=== PATIENT | male | born 1945 | race Caucasian/White ===

== ENCOUNTER 2017-04-07 23:00 | Inpatient (IN) | payer MEDICARE ==
[2017-04-07] MEDS ORDERED: ASPIRIN 81 MG PO STA (23:41)
--- NOTE | 2017-04-07 23:46 | ED ---
Chest Pain HPI - General Chief Complaint: Chest Pain Stated Complaint: Chest pain Time Seen by Provider: 04/07/17 23:14 Source: patient Mode of arrival: ambulatory Limitations: no limitations - History of Present Illness Initial Comments: This patient is a 71-year-old man who presents to be evaluated for substernal chest pain. The patient states that he first noted it around 2 in the afternoon while he was at rest. The pain was constant, mild to moderate, aching. He states that also felt like it was to both shoulders. Patient states that it was not bothering him very much so he was initially not concerned. When it had not resolved by 7 PM tonight, he took an 81 mg aspirin and states that the pain resolved following this. He then went to bed but noted that while he was in bed around 10:30 the pain recurred. He again took an 81 mg aspirin but when the pain did not resolve he decided come here. He states that the pain has resolved while he was on the way here. He patient has not noted any other worsening or relieving factors. He states there were no associated symptoms and denied other symptoms, see the review of systems please MD Complaint: chest pain -: hour(s) Onset: during rest Pain Location: substernal Severity: moderate Quality: aching Consistency: intermittent, now resolved Improves With: other (Aspirin) Worsens With: nothing Treatments Prior to Arrival: aspirin - Related Data Home Medications Medication Instructions Recorded Confirmed Aspirin 162 mg PO ONCE PRN 04/07/17 04/07/17 Hydrochlorothiazide [Hydrodiuril] 25 mg PO BID 04/07/17 04/07/17 Allergies Allergy/AdvReac Type Severity Reaction Status Date / Time No Known Allergies Allergy Verified 04/07/17 23:43 Review of Systems ROS Statement: Those systems with pertinent positive or pertinent negative responses have been documented in the HPI. ROS Other: All systems not noted in ROS Statement are negative. Constitutional: Denies: fever, chills, weakness Respiratory: Denies: cough, dyspnea Cardiovascular: Reports: as per HPI, chest pain. Denies: palpitations, orthopnea, edema, syncope Gastrointestinal: Denies: abdominal pain, nausea, vomiting Genitourinary: Denies: dysuria, hematuria Musculoskeletal: Denies: back pain Skin: Denies: rash Neurological: Denies: headache, weakness, numbness EKG Findings - EKG Results: EKG: interpreted by LIDA, sinus rhythm (Rate approximately 66 bpm), normal axis , normal QRS - Blocks, [place], Hypertrophy, ST Abn: Repolarization changes or abnormalities: nonspecific abnormality, ST segment, and/or T wave Past Medical History Past Medical History: Hypertension Additional Past Medical History / Comment(s): laceration to left second finger. History of Any Multi-Drug Resistant Organisms: None Reported Past Surgical History: No Surgical Hx Reported Past Psychological History: No Psychological Hx Reported Smoking Status: Never smoker Past Alcohol Use History: None Reported Past Drug Use History: None Reported General Exam Limitations: no limitations General appearance: alert, in no apparent distress Head exam: Present: atraumatic, normocephalic Eye exam: Present: normal appearance. Absent: scleral icterus, conjunctival injection ENT exam: Present: normal oropharynx Neck exam: Present: normal inspection, full ROM Respiratory exam: Present: normal lung sounds bilaterally. Absent: respiratory distress, wheezes, rales, rhonchi, stridor Cardiovascular Exam: Present: regular rate, normal rhythm, normal heart sounds. Absent: systolic murmur, diastolic murmur, rubs, gallop GI/Abdominal exam: Present: soft. Absent: distended, tenderness, guarding, rebound, mass Extremities exam: Present: normal inspection, normal capillary refill. Absent: pedal edema, calf tenderness Back exam: Present: normal inspection. Absent: CVA tenderness (R), CVA tenderness (L) Neurological exam: Present: alert Skin exam: Present: warm, dry, intact, normal color. Absent: rash Course Vital Signs 04/07/17 04/07/17 23:02 23:49 Temperature 97.3 F L Pulse Rate 81 69 Respiratory 20 18 Rate Blood Pressure 212/105 195/88 O2 Sat by Pulse 100 98 Oximetry Chest Pain [facility] Patient is 71-year-old man who has had episodes of chest pain and has a minimally elevated troponin. He is currently symptom-free in the emergency department. Patient will be admitted and have cardiology consultation. Patient is given nitroglycerin for his elevated blood pressure along with low dose of an oral beta helena. Again he remained symptom-free at time of admission Critical Care Time Critical Care Time: Yes (35 minutes) Disposition Clinical Impression: Acute coronary syndrome, Hypertension Disposition: ADMITTED IP TO THIS HOSP Condition: Fair Referrals: Thai Lopez DO [Primary Care Provider] - 1-2 days
[2017-04-07 23:51] LABS: Basophils # (A) 0.1 k/uL (0-0.2); Basophils % (A) 1 %; CH 35.9; CHCM 34.7; Eosinophils # (A) 0.2 k/uL (0-0.7); Eosinophils % (A) 3 %; HCT 47.3 % (39.0-53.0); HDW 2.38; HGB 15.6 gm/dL (13.0-17.5); Luc % (Auto) 4; Lymphocytes # (A) 2.3 k/uL (1.0-4.8); Lymphocytes % (A) 27 %; MCH 34.3 pg (25.0-35.0); MCHC 33.1 g/dL (31.0-37.0); MCV 103.7 fL (80.0-100.0); Macrocytosis Slight; Mean Platelet Volume 8.1; Monocytes # (A) 0.6 k/uL (0-1.0); Monocytes % (A) 7 %; Neutrophils % (A) 59 %; RBC 4.55 m/uL (4.30-5.90); RDW 13.5 % (11.5-15.5); WBC 8.5 k/uL (3.8-10.6); WBC (Perox) 8.33
--- NOTE | 2017-04-07 23:59 | XR ---
EXAMINATION TYPE: XR chest 1V portable DATE OF EXAM: 04/07/2017 COMPARISON: NONE HISTORY: Chest pain TECHNIQUE: Single frontal view of the chest is obtained. FINDINGS: There is no heart failure nor confluent pneumonic infiltrate. Costophrenic angles are allie r. Thoracic aorta is atheromatous. There are chest leads. IMPRESSION: No active cardiopulmonary disease.
[2017-04-08] LABS: ALT 36 U/L (21-72); AST 28 U/L (17-59); Alkaline Phosphatase 122 U/L (38-126); Anion Gap 12 mmol/L; Blood Urea Nitrogen 36 mg/dL (9-20); Calcium 9.8 mg/dL (8.4-10.2); Carbon Dioxide 26 mmol/L (22-30); Chloride 101 mmol/L (98-107); Glucose 108 mg/dL (74-99); Magnesium 1.8 mg/dL (1.6-2.3); Non-African American GFR(MDRD) >60 (>60 ml/min/1.73 sqM); Potassium 4.1 mmol/L (3.5-5.1); Sodium 139 mmol/L (137-145); Total Bilirubin 0.5 mg/dL (0.2-1.3); Total Protein 8.2 g/dL (6.3-8.2)
[2017-04-08 00:07] LABS: Partial Thromboplastin Time 25.8 sec (22.0-30.0); Prothrombin Time 10.5 sec (9.0-12.0)
[2017-04-08] MEDS ORDERED: HEPARIN SODIUM,PORCINE 5,000 UNIT/ML 1 ML VIAL IV ONE (01:00)
[2017-04-08] MEDS ORDERED: HEPARIN SODIUM,PORCINE 5,000 UNIT/ML 1 ML VIAL IV PRN (01:00)
[2017-04-08] MEDS ORDERED: HEPARIN SODIUM,PORCINE/D5W PMX 25,000 UNIT in DEXTROSE/WATER 1 500ML.BAG IV SCH (01:00)
[2017-04-08] MEDS ORDERED: NITROGLYCERIN SL TABS 0.4 MG TAB SUBLINGUAL PRN ×2 (01:01→10:02)
[2017-04-08] MEDS ORDERED: NITROGLYCERIN SL TABS 0.4 MG TAB SUBLINGUAL STA (01:04)
[2017-04-08] MEDS ORDERED: METOPROLOL TARTRATE 12.5 MG TAB PO STA (01:04)
[2017-04-08 02:22] VITALS: BMI 34.5
[2017-04-08 06:50] LABS: Basophils # (A) 0.1 k/uL (0-0.2); Basophils % (A) 1 %; CHCM 33.9; Eosinophils # (A) 0.2 k/uL (0-0.7); Eosinophils % (A) 3 %; HCT 43.4 % (39.0-53.0); HDW 2.47; HGB 14.5 gm/dL (13.0-17.5); Luc # (Auto) 0.25; Luc % (Auto) 3; Lymphocytes # (A) 2.6 k/uL (1.0-4.8); Lymphocytes % (A) 36 %; MCH 33.5 pg (25.0-35.0); MCHC 33.4 g/dL (31.0-37.0); MCV 100.5 fL (80.0-100.0); Mean Platelet Volume 7.4; Monocytes # (A) 0.6 k/uL (0-1.0); Monocytes % (A) 8 %; Neutrophils # (A) 3.6 k/uL (1.3-7.7); Neutrophils % (A) 49 %; RBC 4.32 m/uL (4.30-5.90); RDW 12.3 % (11.5-15.5); WBC 7.4 k/uL (3.8-10.6); WBC (Perox) 7.27
[2017-04-08 07:35] LABS: Creatine Kinase MB 10.2 ng/mL (0.0-2.4); Troponin I 0.939 ng/mL (0.000-0.034)
[2017-04-08] MEDS ORDERED: ASPIRIN 81 MG PO PRN (09:07)
[2017-04-08] MEDS ORDERED: ATORVASTATIN 80 MG TAB PO SCH (09:15)
--- NOTE | 2017-04-08 09:15 | P.CRDCN ---
History of Present Illness Consult date: 04/08/17 Requesting physician: River Tabares Consult reason: chest pain Chief complaint: Chest pain History of present illness: Is is a pleasant 71-year-old gentleman with history of hypertension, family history of coronary artery disease in that his father had coronary artery bypass grafting surgery at the age of 60. He is not a diabetic, no high cholesterol, he is a nonsmoker and does not drink alcohol. Patient states that he was at [facility] yesterday picking up his prescriptions, he checked his blood pressure there which was noted to be in the 180s systolic. On the drive home patient states that he developed pressure in the center of his chest which radiated up into the left shoulder and upper arm area. He states that the pain continued to come and go. He took a baby aspirin at home around 7:30 and states that within a half hour the symptoms seemed to subside. He then awoke again around 10:00 with the same pressure in the chest, again took a baby aspirin this time with no relief of symptoms. Therefore he came to the emergency room for further evaluation. Patient denies any associated nausea or shortness of breath, he states he felt warm but no aggressive diaphoresis. EKG on arrival here showed a normal sinus rhythm with lateral ST depression. Subsequent EKG showed a normal sinus rhythm with mild lateral ST depression noted. Chest x-ray did not reveal any active cardiopulmonary disease. White blood cell count 7.4, hemoglobin 14.5, platelet count 270, d-dimer 0.6. Sodium 139, potassium 4.9, BUN 36, creatinine 1.1, magnesium 1.8. creatinine 1.0. Initial troponin 0.12, subsequent troponin 0.93. Blood pressure on arrival here to 12/105, heart rate in the 80s, 100% on room air. Blood pressure this morning 144/80 with a heart rate in the 70s. At the time of my examination this morning, he denies any chest discomfort. He is currently on IV heparin, and hydrochlorothiazide. Past Medical History Past Medical History: Hypertension Additional Past Medical History / Comment(s): laceration to left second finger. History of Any Multi-Drug Resistant Organisms: None Reported Past Surgical History: No Surgical Hx Reported Past Anesthesia/Blood Transfusion Reactions: No Reported Reaction Past Psychological History: No Psychological Hx Reported Smoking Status: Never smoker Past Alcohol Use History: None Reported Past Drug Use History: None Reported - Past Family History Father Family Medical History: Coronary Artery Disease (CAD) Mother Family Medical History: Diabetes Mellitus Medications and Allergies Home Medications Medication Instructions Recorded Confirmed Type Aspirin 162 mg PO ONCE PRN 04/07/17 04/07/17 History Hydrochlorothiazide [Hydrodiuril] 25 mg PO BID 04/07/17 04/07/17 History Allergies Allergy/AdvReac Type Severity Reaction Status Date / Time No Known Allergies Allergy Verified 04/07/17 23:43 Physical Exam Vitals: Vital Signs Temp Pulse Pulse Resp BP BP Pulse Ox 04/08/17 04:00 18 04/08/17 02:00 97 F L 70 18 144/80 97 04/08/17 01:24 68 18 171/81 98 04/07/17 23:49 69 18 195/88 98 04/07/17 23:02 97.3 F L 81 20 212/105 100 Intake and Output 04/07/17 04/08/17 04/08/17 22:59 06:59 14:59 Intake Total 688.667 Balance 688.667 Intake: IV 500 0.9 NaCl 500 Intake, IV Titration 188.667 Amount Heparin Sodium,Porcine/ 188.667 D5w Pmx 25,000 unit In Dextrose/Water 1 500ml. bag @ 10.1 UNITS/KG/HR 20 .15 mls/hr IV .Q24H [facility] Rx#:[id number] Other: Weight 103 kg PHYSICAL EXAMINATION: HEENT: Head is atraumatic, normocephalic. Pupils equal, round. Neck is supple. There is no elevated jugular venous pressure. HEART EXAMINATION: Heart S1, S2 normal. No murmur or gallop heard. CHEST EXAMINATION: Lungs are clear to auscultation and precussion. No chest wall tenderness is noted on palpation or with deep breathing. ABDOMEN: Soft, nontender. Bowel sounds are heard. No organomegaly noted. EXTREMITIES: 2+ peripheral pulses with no evidence of peripheral edema and no calf tenderness noted. NEUROLOGIC patient is awake, alert and oriented -3. . Results 04/08/17 06:16 04/07/17 23:20 Cardiac Enzymes 04/07/17 04/07/17 04/08/17 Range/Units 23:20 23:20 06:16 AST 28 (17-59) U/L CK-MB (CK-2) 10.2 H* (0.0-2.4) ng/mL Troponin I 0.120 H* 0.939 H* (0.000-0.034) ng/mL Coagulation 04/07/17 04/08/17 Range/Units 23:20 06:16 PT 10.5 (9.0-12.0) sec APTT 25.8 42.7 H (22.0-30.0) sec CBC 04/07/17 04/08/17 Range/Units 23:20 06:16 WBC 8.5 7.4 (3.8-10.6) k/uL RBC 4.55 4.32 (4.30-5.90) m/uL Hgb 15.6 14.5 (13.0-17.5) gm/dL Hct 47.3 43.4 (39.0-53.0) % Plt Count 274 270 (150-450) k/uL Comprehensive Metabolic Panel 04/07/17 Range/Units 23:20 Sodium 139 (137-145) mmol/L Potassium 4.1 (3.5-5.1) mmol/L Chloride 101 (98-107) mmol/L Carbon Dioxide 26 (22-30) mmol/L BUN 36 H (9-20) mg/dL Creatinine 1.10 (0.66-1.25) mg/dL Glucose 108 H (74-99) mg/dL Calcium 9.8 (8.4-10.2) mg/dL AST 28 (17-59) U/L ALT 36 (21-72) U/L Alkaline Phosphatase 122 (38-126) U/L Total Protein 8.2 (6.3-8.2) g/dL Albumin 4.5 (3.5-5.0) g/dL Current Medications Generic Name Dose Route Start Last Admin Trade Name Freq PRN Reason Stop Dose Admin Aspirin 325 mg 04/09/17 09:00 Aspirin PO DAILY [facility] Heparin Sodium (Porcine) 0 unit 04/08/17 01:00 Heparin IV PER PROTOCOL PRN Low PTT Protocol Hydrochlorothiazide 25 mg 04/08/17 09:00 Hydrodiuril PO BID [facility] Heparin Sodium/Dextrose 25,000 500 mls @ 20.15 mls/hr 04/08/17 01:00 06:48 unit/ IV Solution IV 12.02 units/kg/hr .Q24H [facility] 23.98 mls/hr Protocol Titration 10.1 UNITS/KG/HR Nitroglycerin 0.4 mg 04/08/17 01:01 Nitrostat SUBLINGUAL Q5M PRN Chest Pain Intake and Output 04/07/17 04/08/17 04/08/17 22:59 06:59 14:59 Intake Total 688.667 Balance 688.667 Intake: IV 500 0.9 NaCl 500 Intake, IV Titration 188.667 Amount Heparin Sodium,Porcine/ 188.667 D5w Pmx 25,000 unit In Dextrose/Water 1 500ml. bag @ 10.1 UNITS/KG/HR 20 .15 mls/hr IV .Q24H [facility] Rx#:[id number] Other: Weight 103 kg 04/08/17 06:16 04/07/17 23:20 EKG Interpretations (text) EKG shows a normal sinus rhythm with mild lateral ST depression noted Assessment and Plan Plan: Assessment and plan #1 Intermittent symptoms of chest heaviness and pressure with radiation to the left arm, suggestive of acute coronary syndrome. Troponins 0.1, 0.9. #2 accelerated hypertension #3 history of hypertension #4 family history of coronary artery disease, his father underwent coronary artery bypass grafting surgery at the age of 60. #5 abnormal d-dimer Plan We will request a stat echocardiogram with Doppler study be performed. We will continue IV heparin. Initiate aspirin, statin, and beta helena. Patient has been advised that he may need to undergo cardiac catheterization for more definitive diagnosis. The risks and the benefits were explained to the patient in detail and he is willing to proceed. Further recommendations will be based on these findings and the patient's clinical course. DNP note has been reviewed, I agree with a documented findings and plan of care. Patient was seen and examined.
[2017-04-08] MEDS ORDERED: ALPRAZolam 0.25 MG TAB PO PRN (10:02)
[2017-04-08] MEDS ORDERED: ATORVASTATIN 80 MG TAB PO STA (10:02)
[2017-04-08] MEDS ORDERED: ALPRAZolam 0.5 MG TAB PO PRN (10:02)
[2017-04-08] MEDS ORDERED: SODIUM CHLORIDE 0.9% 1,000 ML in EMPTY BAG 1 BAG IV ONE (10:02)
[2017-04-08] MEDS ORDERED: ASPIRIN 325 MG TAB PO STA (10:07)
[2017-04-08] MEDS: METOPROLOL TARTRATE 25 MG TAB PO SCH ×2 (10:16→20:27)
[2017-04-08] MEDS: HYDROCHLOROTHIAZIDE 25 MG TAB PO SCH ×2 (10:17→20:27)
[2017-04-08] MEDS ORDERED: IV FLUID CONTINUATION 900 ML IV ONE (11:03)
[2017-04-08] MEDS ORDERED: MIDAZOLAM 2 MG/2 ML VIAL IVP ONE (11:03)
[2017-04-08] MEDS ORDERED: LIDOCAINE 2% INJ 20 MG/ML SQ ONE (11:05)
[2017-04-08] MEDS: VERAPAMIL SYRINGE (5 MG/10 ML) INTRAARTER ONE ×2 (11:08→11:44)
[2017-04-08] MEDS ORDERED: HEPARIN SODIUM 1,000 UN/ML (10ML VL) IV ONE ×2 (11:09→11:29)
[2017-04-08] MEDS: NITROGLYCERIN 1000MCG/10ML SYRINGE INTRACORON ONE ×2 (11:32→11:41)
[2017-04-08] MEDS ORDERED: CLOPIDOGREL 75 MG TAB PO ONE (11:37)
[2017-04-08] MEDS ORDERED: IODIXANOL 320 MG/ML 100 ML INTRAARTER ONE (11:43)
[2017-04-08] MEDS ORDERED: MAG HYDROX/AL HYDROX/SIMETH 30 ML CUP PO PRN (11:51)
[2017-04-08] MEDS ORDERED: RX INFO: IV CONTRAST WAS GIVEN 1 EACH MISC MISCELLANE PRN (11:51)
[2017-04-08] MEDS ORDERED: ATROPINE SULFATE 0.1 MG/ML 10ML SYRINGE IV PRN (11:51)
[2017-04-08] MEDS ORDERED: SODIUM CHLORIDE 0.9% 1,000 ML IV SCH (12:00)
--- NOTE | 2017-04-08 13:08 | CC ---
CARDIAC CATHETERIZATION REPORT DATE OF SERVICE: 04/08/2017 PERFORMING PHYSICIAN: Franklin Stern MD, heel cutter. PROCEDURE PERFORMED: 1. Selective right and left coronary angiogram. 2. Successful stenting of the first obtuse marginal branch of the left circumflex using a 2.5 x 12 mm Promus Premier drug-eluting stent with good angiographic results. INDICATION: This is a pleasant 71-year-old gentleman who presented to the hospital with chest discomfort and was seen and evaluated by Dr. VC Young where he was diagnosed with acute non ST elevation myocardial infarction. Heart catheterization from right radial approach was recommended. APPROACH: Right radial artery. COMPLICATION: None. LEVEL OF SEDATION: Moderate with sedation length of 40 minutes. PROCEDURE DESCRIPTION: After obtaining informed consent, the patient was brought to cardiac laborer shellfish processing. The right radial artery was cannulated using micropuncture technique, the micropuncture wire passed easily. Then I placed a 6-[place] sheath in the right radial artery. Subsequently I did selective right and left coronary angiogram using JR4 and JL3.5 catheters. After that, I did intervene on the left circumflex. Please see a separate paragraph for that. SELECTIVE CORONARY ANGIOGRAM: 1. The right coronary artery is a large caliber vessel. It is a dominant vessel. It has mild disease only in the midportion. It bifurcates distally into PDA and PLV branches. Both are angiographically normal. 2. The left main is angiographically normal. It is a short left main. It bifurcates into the circumflex and left anterior descending artery. 3. The left circumflex is a large caliber vessel and it is a nondominant vessel. The proximal left circumflex appears to be angiographically normal and gives rise into the 1st and 2nd obtuse marginal branches. The 1st OM branch has a disease appeared to be in the range of 90% and the 2nd OM branch appears to have mild disease only. The mid left circumflex and left circumflex distally appeared to have mild disease only. 4. The left anterior descending artery: The proximal LAD appeared to have a long tubular lesion seems to be in the range of 50%. This is involving the bifurcation of a diagonal branch. The mid LAD and distal LAD appear to have mild disease only. PCI OF THE LEFT CIRCUMFLEX: Anticoagulation was initiated using heparin and the patient received a total of 12,000 units of heparin IV. After that, I did wire the left circumflex using a whisper wire. After that, I did PTCA ballooning using 2.0 x 10 mm balloon. Subsequently, I deployed 2.5 x 12 mm Promus Premier drug-eluting stent where the stent was positioned under fluoroscopy guidance and deployed under 12 atmospheres for 30 seconds. I postdilated that stent using 2.5 x 12 mm NC balloon which was inflated under 18 atmospheres for 20 seconds. The following angiogram showed good angiographic results without perforation and without dissection and the procedure was completed without any complication. CONCLUSION: 1. Acute non ST elevation myocardial infarction. 2. Mild disease involving the dominant right coronary artery. 3. Normal but short left main coronary artery. 4. Critical disease involving the first obtuse marginal branch of the left circumflex. 5. Intermediate disease involving the proximal LAD with a long tubular lesion. 6. Successful stenting of the first obtuse marginal branch of the left circumflex as described above. POSTPROCEDURE MANAGEMENT: 1. Maximize medical treatment. 2. Follow up with the patient. MMODL / IJN: [id number] /
[2017-04-08 14:09] LABS: Creatine Kinase MB 11.4 ng/mL (0.0-2.4)
[2017-04-08 14:10] LABS: Troponin I 1.56 ng/mL (0.000-0.034)
--- NOTE | 2017-04-08 16:35 | HP ---
HISTORY AND PHYSICAL DATE OF ADMISSION: April 08, 2017. PRESENT COMPLAINT: Chest pressure. HISTORY OF PRESENTING COMPLAINT: A very pleasant, 71-year-old patient of Dr. Lopez with known history of hypertension, blood pressure is running high. He went to see Dr. Lopez 2 days ago [address] at [facility] picking up his medication and decided to get his blood pressure checked. Blood pressure came to 180 systolic by 92. The patient's complains he has been having central chest pressure off and on. It had happened yesterday too. There was no shortness of breath. No dizziness. The patient started to feel warm. Because of recurrent symptoms and blood pressure running high, decided to come into the hospital. The patient's troponins started to climb and patient was ruled in for an acute myocardial infarction. Patient is taken out to the slab lifting supervisor by Dr. Stern and patient did have a successful stenting to the first obtuse marginal of the left circumflex. REVIEW OF SYSTEMS: CONSTITUTIONAL: Tired. HEENT none. Respiratory none. Cardiovascular as above. Gastrointestinal none. Genitourinary: None. Musculoskeletal: None. Dermatological, hematologic and lymphatics none. Psychiatry none. Neurological none. PAST MEDICAL HISTORY: Of essential hypertension. Laceration left second finger. PAST SURGICAL HISTORY: None. SOCIAL HISTORY: No smoking. No alcohol. The patient has different rental properties. FAMILY HISTORY: Family history of coronary artery disease. HOME MEDICATIONS: 1. Hydrochlorothiazide 25 mg p.o. b.i.d. 2. Aspirin 162 mg. ALLERGIES: None. PHYSICAL EXAMINATION: Temperature 97, pulse 72, respiration 18, blood pressure is 144/80, pulse ox 97% room air. GENERAL APPEARANCE: Well built, BMI 34.5 sitting up at the age of the bed, comfortable. Eyes pupils equal. Conjunctivae normal. HEENT: Oral cavity normal. NECK: JVD not raised. Mass not palpable. Respiratory effort lungs are clear. Cardiovascular first and second sounds no edema. ABDOMEN: Soft, nontender. Liver and spleen not palpable. Lymphatics: No lymph nodes palpable in neck or axillae. Psychiatry alert and oriented times three. Mood and affect normal. Extremities: Controlled dressing on the right wrist at the cardiac cath site. INVESTIGATIONS: White count 8.5, hemoglobin 15.6, potassium 1.0, troponin 0.12, 0.930, next 1.5. ASSESSMENT: 1. Acute non-Q-wave myocardial infarction. The patient taken for a cardiac catheterization now with stent. Stent to the first obtuse marginal of the left circumflex. 2. Obesity BMI 34.5. 3. Essential hypertension with urgency. PLAN: The patient is currently on aspirin, Lipitor, Plavix, hydrochlorothiazide, Zestril, Lopressor. Care was discussed with the patient. Questions were answered. The patient is seen by Dr. Keith Young from Cardiology and Dr. Stern as intervention staff registered nurse. Copy to Dr. Lopez. MMODL / IJN: [id number] /
[2017-04-08 20:52] VITALS: RESP 18
[2017-04-09 07:23] LABS: Basophils % (A) 1 %; CH 35.3; CHCM 33.7; Eosinophils # (A) 0.3 k/uL (0-0.7); Eosinophils % (A) 4 %; HCT 43.5 % (39.0-53.0); HDW 2.37; HGB 14.4 gm/dL (13.0-17.5); Luc # (Auto) 0.19; Luc % (Auto) 3; Lymphocytes # (A) 1.9 k/uL (1.0-4.8); Lymphocytes % (A) 31 %; MCH 34.8 pg (25.0-35.0); MCHC 33.1 g/dL (31.0-37.0); MCV 105.4 fL (80.0-100.0); Macrocytosis Slight; Mean Platelet Volume 8.2; Monocytes # (A) 0.5 k/uL (0-1.0); Monocytes % (A) 8 %; Neutrophils # (A) 3.4 k/uL (1.3-7.7); Neutrophils % (A) 54 %; RBC 4.13 m/uL (4.30-5.90); RDW 13.6 % (11.5-15.5); WBC 6.2 k/uL (3.8-10.6); WBC (Perox) 6.12
[2017-04-09 07:41] LABS: Anion Gap 9 mmol/L; Blood Urea Nitrogen 26 mg/dL (9-20); Calcium 9.2 mg/dL (8.4-10.2); Carbon Dioxide 26 mmol/L (22-30); Chloride 105 mmol/L (98-107); Cholesterol 250 mg/dL (<200); Glucose 98 mg/dL (74-99); HDL Cholesterol 41 mg/dL (40-60); Non-African American GFR(MDRD) >60 (>60 ml/min/1.73 sqM); Potassium 4.7 mmol/L (3.5-5.1); Sodium 140 mmol/L (137-145)
[2017-04-09] MEDS: METOPROLOL TARTRATE 25 MG TAB PO SCH (07:59)
[2017-04-09] MEDS: HYDROCHLOROTHIAZIDE 25 MG TAB PO SCH (07:59)
[2017-04-09] MEDS ORDERED: ASPIRIN 325 MG TAB PO SCH ×2 (09:00)
[2017-04-09] MEDS ORDERED: CLOPIDOGREL 75 MG TAB PO SCH (09:00)
[2017-04-09] MEDS ORDERED: ATORVASTATIN 80 MG TAB PO SCH (09:00)
[2017-04-09] MEDS ORDERED: LISINOPRIL 10 MG TAB PO SCH (09:00)
--- NOTE | 2017-04-09 13:44 | P.PN ---
Subjective Progress Note Date: 04/09/17 Principal diagnosis: Acute Coronary Syndrome This is a pleasant 71-year-old gentleman with a history of hypertension, family history of coronary artery disease. He is not diabetic, no high cholesterol and is a nonsmoker and does not drink alcohol. Patient is at his pharmacy and took his blood pressure and noted to be in the 180s systolic. On the drive home he developed pressure in the center of his chest which radiated up into the left shoulder and upper arm area. EKG found lateral ST depression. And troponins were found to be elevated. He is recommended to undergo cardiac radiation which was done yesterday by Dr. Stern. Catheterization showed mild disease involving the dominant right coronary artery , normal short left main coronary artery and critical disease involving the first obtuse marginal branch of the left circumflex along with intermediate disease involving the proximal LAD with a long tubular lesion. Underwent successful stenting of the first obtuse marginal branch of the left circumflex. Upon examination, patient is doing well today. He is sitting up in a chair talking with his . He denies any further complaints of chest discomfort. Denies complaints of shortness of breath, dizziness or edema. Being discharged home today. Objective - Vital Signs Vital signs: Vital Signs Temp 97.2 F L 04/09/17 03:56 Pulse 56 L 04/09/17 03:56 Resp 18 04/09/17 03:56 BP 112/58 04/09/17 03:56 Pulse Ox 97 04/09/17 03:56 Intake & Output 04/08/17 04/09/17 04/09/17 18:59 06:59 18:59 Intake Total 250 236 Balance 250 236 Weight 103 kg 100.7 kg Intake: IV 50 Oral 200 236 Other: Voiding Method Toilet Toilet # Voids 1 2 # Bowel Movements 0 - Exam PHYSICAL EXAMINATION: HEENT: Head is atraumatic, normocephalic. Pupils equal, round. Neck is supple. There is no elevated jugular venous pressure. HEART EXAMINATION: Heart sounds regular, S1 and S2 normal. No murmur or gallop heard. CHEST EXAMINATION: Lungs are clear to auscultation and precussion. No chest wall tenderness is noted on palpation or with deep breathing. ABDOMEN: Soft, nontender. Bowel sounds are heard. No organomegaly noted. EXTREMITIES: 2+ peripheral pulses with no evidence of peripheral edema and no calf tenderness noted. Right radial puncture site soft without ecchymosis or hematoma. NEUROLOGIC patient is awake, alert and oriented x3. . - Labs CBC & Chem 7: 04/09/17 06:33 04/09/17 06:33 Labs: Abnormal Lab Results - Last 24 Hours (Table) 04/08/17 04/09/17 04/09/17 Range/Units 13:04 06:33 06:33 RBC 4.13 L (4.30-5.90) m/uL MCV 105.4 H (80.0-100.0) fL BUN 26 H (9-20) mg/dL CK-MB (CK-2) 11.4 H* (0.0-2.4) ng/mL Troponin I 1.560 H* (0.000-0.034) ng/mL Triglycerides 195 H (<150) mg/dL Cholesterol 250 H (<200) mg/dL LDL Cholesterol, Calc 170 H (0-99) mg/dL Assessment and Plan Plan: Assessment and plan #1 non-ST elevated myocardial infarction #2 coronary artery disease, status post stenting of the first obtuse marginal branch of the left circumflex #3 hypertension From cardiology's perspective, medications were reviewed and will continue the same. Patient will follow-up with Dr. VC Young the office within the next 2 weeks. EPIC DIRECTOR note has been reviewed, I agree with a documented findings and plan of care. Patient was seen and examined.
[2017-04-09 14:47] VITALS: BP 121/58; PULSE 69; TEMP 97.9
--- NOTE | 2017-04-09 15:56 | P.DS ---
Providers Date of admission: 04/08/17 01:01 Expected date of discharge: 04/09/17 Attending physician: River Tabares Consults: 04/08/17 01:01 Consult Physician Urgent Consulting Provider: Donny Glass Consult Reason/Comments: Acute coronary syndrome Do you want consulting provider notified?: Yes 04/08/17 11:51 Consult Physician Routine Consulting Provider: [facility] Consult Reason/Comments: Post Interventional patient Do you want consulting provider notified?: Already Contacted Primary care physician: Thai Lopez [facility] Hospital Course: FINAL DIAGNOSES: -Acute non-Q wave myocardial infarction status post cardiac catheterization with stent to the first obtuse marginal of the left circumflex -Obesity body mass index 34.5. -Essential hypertension with urgency HOSPTIAL COURSE: 71-year-old male who presented with central chest pressure off and on. Admitted with chest pressure. Home medications reordered, troponins 3 ordered , cardiology consulted. Troponins began to climb the patient ruled in for an acute myocardial infarction. Patient taken to the cardiac [facility] with Dr. Stern received a stent to the first obtuse margin of the left circumflex. Tolerated procedure well, no further episode of chest pain or pressure. Tolerating his diet, ambulatory in the room and pride ways, moving his bowels. Very anxious to go home. Overall condition improved patient is stable for discharge. PHYSICAL EXAM: CARDIOVASCULAR: First and second sound noted no edema. RESPIRATORY: Respiratory effort normal lung sounds diminished bilaterally INTEGUMENT: Right wrist catheterization site clean dry and intact dressing in place, no bleeding/ hematoma noted. PSYCHIATRY: Alert and oriented 3 but and affect normal. Patient was seen and examined by nurse practitioner Stefania Haywood in all elements of the case discussed with attending Dr. Tabares DISPOSITION: Discharge home to the care of his family. Patient Condition at Discharge: Fair Plan - Discharge Summary Discharge Rx Participant: Yes New Discharge Prescriptions: New Clopidogrel [Plavix] 75 mg PO DAILY #30 tab Mag Hydrox/Al Hydrox/Simeth [Maalox] 30 ml PO Q4HR PRN cup PRN Reason: Heartburn Nitroglycerin Sl Tabs [Nitrostat] 0.4 mg SUBLINGUAL Q5M PRN #21 tab PRN Reason: Chest Pain Atorvastatin [Lipitor] 80 mg PO DAILY #30 tab Lisinopril-Hctz 10-12.5 mg [Zestoretic 10-12.5] 1 tab PO DAILY #30 tab Metoprolol Tartrate [Lopressor] 25 mg PO BID #60 tablet Aspirin 81 mg PO BID #1 chewable Discontinued Hydrochlorothiazide [Hydrodiuril] 25 mg PO BID Aspirin 162 mg PO ONCE PRN PRN Reason: Chest Pain Discharge Medication List Aspirin 81 mg PO BID #1 chewable 04/09/17 [Rx] Atorvastatin [Lipitor] 80 mg PO DAILY #30 tab 04/09/17 [Rx] Clopidogrel [Plavix] 75 mg PO DAILY #30 tab 04/09/17 [Rx] Lisinopril-Hctz 10-12.5 mg [Zestoretic 10-12.5] 1 tab PO DAILY #30 tab 04/09/17 [Rx] Mag Hydrox/Al Hydrox/Simeth [Maalox] 30 ml PO Q4HR PRN cup 04/09/17 [Rx] Metoprolol Tartrate [Lopressor] 25 mg PO BID #60 tablet 04/09/17 [Rx] Nitroglycerin Sl Tabs [Nitrostat] 0.4 mg SUBLINGUAL Q5M PRN #21 tab 04/09/17 [Rx ] Follow up Appointment(s)/Referral(s): Thai Lopez DO [Primary Care Provider] - 04/13/17 9:30 am (Appointment with Ned Brown NP.) Adolfo Young MD [STAFF PHYSICIAN] - 04/19/17 11:30 am Ambulatory/Diagnostic Orders: Basic Metabolic Panel [LAB.AMB] Location: Determined By Patient Patient Instructions/Handouts: Left Heart Catheterization (DC), Heart Healthy Diet (DC), After Radial Heart Catheterization (GEN) Discharge Disposition: HOME SELF-CARE
--- NOTE | 2017-04-09 17:42 | DS ---
DISCHARGE SUMMARY DATE OF SERVICE: 04/09/17. ATTENDING NOTE: This patient is seen and examined by me. I discussed with my nurse practitioner, Ms. Haywood. The patient is status post stent to the RCA. Up and about. No chest pain. No shortness of breath. Has been cleared by Cardiology to go home. EXAM: Lungs are clear. CARDIOVASCULAR: First and second sounds normal. Potassium 4.7, LDL 174. FINAL DIAGNOSES: 1. Acute non-Q-wave myocardial infarction with stent to the 1st obtuse marginal of the left circumflex. 2. Obesity, BMI 34.5. 3. Essential hypertension with urgency on presentation. 4. Hyperlipidemia uncontrolled. Care was discussed with the patient. Lungs are clear. Cardiovascular: 1st and 2nd sounds normal. Follow up is arranged. MMODL / IJN: [id number] /
[2017-04-10] MEDS ORDERED: ASPIRIN 81 MG PO SCH (09:00)
--- NOTE | 2017-04-15 10:21 | ECHOF ---
Referral Reason: MEASUREMENTS -------- HEIGHT: 172.7 cm WEIGHT: 103.0 kg BP: 144/80 RVIDd: 3.1 cm (< 3.3) IVSd: 1.4 cm (0.6 - 1.1) LVIDd: 4.4 cm (3.9 - 5.3) LVPWd: 1.5 cm (0.6 - 1.1) IVSs: 2.0 cm LVIDs: 3.6 cm LVPWs: 1.6 cm LAESV Index (A-L): 19.68 ml/m Ao Diam: 3.9 cm (2.0 - 3.7) AV Cusp: 1.9 cm (1.5 - 2.6) LA Diam: 3.8 cm (2.7 - 3.8) MV EXCURSION: 10.412 mm (> 18.000) MV EF SLOPE: 57 mm/s (70 - 150) EPSS: 0.9 cm MV E Dexter: 0.47 m/s MV DecT: 410 ms MV A Dexter: 0.91 m/s MV E/A Ratio: 0.51 RAP: 5.00 mmHg RVSP: 18.15 mmHg FINDINGS -------- Sinus rhythm with extra systolic beats. This was a technically adequate study. The left ventricular size is normal. There is moderate concentric left ventricular hypertrophy. Overall left ventricular systolic function is moderately impaired with, an EF between 35 - 40 %. Basal inferior LV wall motion is hypokinetic. The right ventricle is normal in size and function. Normal LA size by volume 22+/-6 ml/m2. The right atrium is normal in size. Aortic valve is trileaflet and is mildly thickened. There is no evidence of aortic regurgitation. There is no evidence of aortic stenosis. The mitral valve leaflets are mildly thickened. There is trace to mild mitral regurgitation. Trace tricuspid regurgitation present. Right ventricular systolic pressure is normal at < 35 mmHg. There is no evidence of pulmonary hypertension. The pulmonic valve was not well visualized. The aortic root size is normal. IVC Not well visulized. The pericardium is normal. There is no pericardial effusion. CONCLUSIONS -------- 1. Sinus rhythm with extra systolic beats. 2. There is trace to mild mitral regurgitation. 3. Trace tricuspid regurgitation present. 4. Right ventricular systolic pressure is normal at < 35 mmHg. 5. There is no evidence of pulmonary hypertension. 6. The pulmonic valve was not well visualized. 7. The aortic root size is normal. 8. IVC Not well visulized. 9. There is no pericardial effusion. 10. This was a technically adequate study. 11. The left ventricular size is normal. 12. There is moderate concentric left ventricular hypertrophy. 13. Overall left ventricular systolic function is moderately impaired with, an EF between 35 - 40 %. 14. Basal inferior LV wall motion is hypokinetic. 15. Normal LA size by volume 22+/-6 ml/m2. 16. Aortic valve is trileaflet and is mildly thickened. 17. The mitral valve leaflets are mildly thickened. HAND VIOLIN MAKER: Ty Whaley RDCS
== END 2017-04-09 15:08 | disposition home or self-care (01) | DRG 247 ==
LOC: EC 23:00 → 6SEL 04-08 01:01
PROVIDERS: ADMIT Hospitalist; ATTEND Hospitalist
PROC: B2111ZZ Fluoroscopy of Multiple Coronary Arteries using Low Osmolar Contrast (ICD-10-PCS; 2017-04-08)
PROC: 4A023N7 Measurement of Cardiac Sampling and Pressure, Left Heart, Percutaneous Approach (ICD-10-PCS; principal; 2017-04-08 10:40)
PROC: 027034Z Dilation of Coronary Artery, One Artery with Drug-eluting Intraluminal Device, Percutaneous Approach (ICD-10-PCS; 2017-04-08 10:40)
DX: I21.4 Non-ST elevation (NSTEMI) myocardial infarction (principal); I10 Essential (primary) hypertension; E66.9 Obesity, unspecified; E78.5 Hyperlipidemia, unspecified; R79.1 Abnormal coagulation profile; I16.0 Hypertensive urgency; Z68.34 Body mass index [BMI] 34.0-34.9, adult; Z79.02 Long term (current) use of antithrombotics/antiplatelets; Z79.82 Long term (current) use of aspirin; Z79.899 Other long term (current) drug therapy; Z82.49 Family history of ischemic heart disease and other diseases of the circulatory system; Z83.3 Family history of diabetes mellitus
CPT/HCPCS: 36415; 71010; 80048; 80053; 80061; 82550; 82553; 83735; 84484; 85025; 85379; 85610; 85730; 93005; 93306; 93454; 96365; 96376; 99291

== ENCOUNTER → 2017-07-12 | Outpatient (CLI) | payer MEDICARE ==
[2017-07-12 09:47] LABS: ALT 45 U/L (21-72); AST 24 U/L (17-59); Alkaline Phosphatase 107 U/L (38-126); Anion Gap 9 mmol/L; Blood Urea Nitrogen 23 mg/dL (9-20); Calcium 9.6 mg/dL (8.4-10.2); Carbon Dioxide 29 mmol/L (22-30); Chloride 106 mmol/L (98-107); Cholesterol 131 mg/dL (<200); Glucose 104 mg/dL (74-99); HDL Cholesterol 40 mg/dL (40-60); LDL Cholesterol,Calculated 70 mg/dL (0-99); Potassium 4.5 mmol/L (3.5-5.1); Sodium 144 mmol/L (137-145); Total Bilirubin 0.4 mg/dL (0.2-1.3); Triglycerides 103 mg/dL (<150)
== END | disposition home or self-care (01) ==
LOC: LABWHC1 09:03
PROVIDERS: ATTEND Internal Medicine Interventional Cardiology
DX: E78.2 Mixed hyperlipidemia (principal)
CPT/HCPCS: 36415; 80053; 80061

== ENCOUNTER → 2018-02-24 | Outpatient (CLI) | payer MEDICARE ==
[2018-02-24 07:34] LABS: ALT 38 U/L (21-72); AST 26 U/L (17-59); Cholesterol 241 mg/dL (<200); Creatine Kinase 66 U/L (55-170); HDL Cholesterol 43 mg/dL (40-60); LDL Cholesterol,Calculated 161 mg/dL (0-99); Triglycerides 187 mg/dL (<150)
== END | disposition home or self-care (01) ==
LOC: LABWHC1 06:35
PROVIDERS: ATTEND Internal Medicine Interventional Cardiology
DX: E78.2 Mixed hyperlipidemia (principal)
CPT/HCPCS: 36415; 80061; 82550; 84450; 84460

== ENCOUNTER → 2018-06-22 | Outpatient (CLI) | payer MEDICARE | LOC: LABWHC1 07:14 | PROVIDERS: ATTEND Internal Medicine Interventional Cardiology | DX: E78.2 Mixed hyperlipidemia (principal) | CPT/HCPCS: 36415; 80061; 84450; 84460 ==

== ENCOUNTER → 2018-08-05 | Outpatient (CLI) | payer MEDICARE ==
[2018-08-05 18:02] LABS: LDL Cholesterol,Calculated 98.6 mg/dL (0.0-131.0); VLDL Calculation 16.4 mg/dL (5.00-40.00)
== END | disposition home or self-care (01) ==
LOC: LABWHC1 08:15
PROVIDERS: ATTEND Internal Medicine Interventional Cardiology
DX: E78.2 Mixed hyperlipidemia (principal)
CPT/HCPCS: 36415; 80061; 84450; 84460

== ENCOUNTER → 2019-05-10 | Outpatient (CLI) | payer MEDICARE ==
[2019-05-10 16:04] LABS: African American GFR (CKD) 86.8 (60.0-200.0); Albumin 4.1 g/dL (3.80-4.90); Albumin/Globulin Ratio 1.78 (1.60-3.17); Anion Gap 7.5 mmol/L (4.00-12.00); Carbon Dioxide 25.5 mmol/L (21.6-31.8); Chol/HDL Ratio 3.2; Globulin 2.3 g/dL (1.6-3.3); Non-African American GFR(CKD) 74.9 (60.0-200.0); Potassium 4.2 mmol/L (3.5-5.5); Total Bilirubin 0.4 mg/dL (0.3-1.2); Total Protein 6.4 g/dL (6.2-8.2)
== END | disposition home or self-care (01) ==
LOC: LABWHC1 08:04
PROVIDERS: ATTEND Internal Medicine Interventional Cardiology
DX: E78.2 Mixed hyperlipidemia (principal)
CPT/HCPCS: 36415; 80053; 80061

== ENCOUNTER → 2020-04-25 | Outpatient (CLI) | payer MEDICARE ==
[2020-04-25 14:48] LABS: African American GFR (CKD) 86.2 (60.0-200.0); Albumin 4.3 g/dL (3.80-4.90); Albumin/Globulin Ratio 1.72 (1.60-3.17); Anion Gap 6.9 mmol/L (4.00-12.00); Calcium 9.3 mg/dL (8.7-10.3); Carbon Dioxide 27.1 mmol/L (21.6-31.8); Chol/HDL Ratio 3.56; Globulin 2.5 g/dL (1.6-3.3); LDL Cholesterol,Calculated 85.2 mg/dL (0.0-131.0); Non-African American GFR(CKD) 74.3 (60.0-200.0); Potassium 4.4 mmol/L (3.5-5.5); Total Bilirubin 0.7 mg/dL (0.3-1.2); Total Protein 6.8 g/dL (6.2-8.2); VLDL Calculation 14.8 mg/dL (5.00-40.00)
== END | disposition home or self-care (01) ==
LOC: LABWHC1 07:24
PROVIDERS: ATTEND Nurse Practitioner Adult Health
DX: I10 Essential (primary) hypertension (principal); E78.2 Mixed hyperlipidemia
CPT/HCPCS: 36415; 80053; 80061

== ENCOUNTER → 2020-11-11 | Outpatient (CLI) | payer MEDICARE ==
[2020-11-11 14:38] LABS: Chol/HDL Ratio 3.31; LDL Cholesterol,Calculated 71.6 mg/dL (0.0-131.0); VLDL Calculation 18.4 mg/dL (5.00-40.00)
== END | disposition home or self-care (01) ==
LOC: LABWHC1 09:09
PROVIDERS: ATTEND Nurse Practitioner Adult Health
DX: E78.2 Mixed hyperlipidemia (principal)
CPT/HCPCS: 36415; 80061; 84450; 84460

== ENCOUNTER → 2021-04-16 | Outpatient (CLI) | payer MEDICARE | END | disposition home or self-care (01) | LOC: LABWHC1 12:46 | PROVIDERS: ATTEND Family Medicine | DX: J06.9 Acute upper respiratory infection, unspecified (principal) | CPT/HCPCS: U0003; C9803 ==

== ENCOUNTER → 2021-05-05 | Outpatient (CLI) | payer MEDICARE ==
[2021-05-05 16:54] LABS: ALT 41 U/L (10-49); AST 30 U/L (14-35); African American GFR (CKD) 76.2 (60.0-200.0); Albumin 3.9 g/dL (3.8-4.9); Albumin/Globulin Ratio 1.22 (1.60-3.17); Alkaline Phosphatase 119 U/L (41-126); BUN/Creat Ratio 20.45 Ratio (12.00-20.00); Blood Urea Nitrogen 22.5 mg/dL (9.0-27.0); Calcium 9.1 mg/dL (8.7-10.3); Carbon Dioxide 21.2 mmol/L (21.6-31.8); Chloride 105 mmol/L (96-109); Chol/HDL Ratio 3.25 Ratio; Globulin 3.2 g/dL (1.6-3.3); Glucose 112 mg/dL (70-110); Non-African American GFR(CKD) 65.8 (60.0-200.0); Potassium 4.3 mmol/L (3.5-5.5); Sodium 141 mmol/L (135-145); Total Protein 7.1 g/dL (6.2-8.2)
== END | disposition home or self-care (01) ==
LOC: LABWHC1 07:34
PROVIDERS: ATTEND Nurse Practitioner Adult Health
DX: E78.2 Mixed hyperlipidemia (principal); I10 Essential (primary) hypertension; I25.5 Ischemic cardiomyopathy
CPT/HCPCS: 36415; 80053; 80061

== ENCOUNTER → 2022-06-24 | Outpatient (CLI) | payer MEDICARE ==
[2022-06-24 16:29] LABS: Chol/HDL Ratio 3.36 Ratio; LDL Cholesterol,Calculated 71.6 mg/dL (0.0-131.0)
[2022-06-24 16:30] LABS: ALT 31 U/L (10-49); AST 24 U/L (14-35); African American GFR (CKD) 76.9 (60.0-200.0); Albumin 4.3 g/dL (3.8-4.9); Albumin/Globulin Ratio 1.59 (1.60-3.17); Alkaline Phosphatase 92 U/L (41-126); BUN/Creat Ratio 19.44 Ratio (12.00-20.00); Calcium 9.6 mg/dL (8.7-10.3); Carbon Dioxide 28.6 mmol/L (20.0-27.5); Chloride 104 mmol/L (96-109); Globulin 2.7 g/dL (1.6-3.3); Glucose 108 mg/dL (70-110); Non-African American GFR(CKD) 66.3 (60.0-200.0); Potassium 4.5 mmol/L (3.5-5.5); Sodium 143 mmol/L (135-145)
== END | disposition home or self-care (01) ==
LOC: LABWHC1 07:47
PROVIDERS: ATTEND Internal Medicine Interventional Cardiology
DX: I10 Essential (primary) hypertension (principal); E78.2 Mixed hyperlipidemia
CPT/HCPCS: 36415; 80053; 80061

== ENCOUNTER → 2023-01-07 | Outpatient (CLI) | payer MEDICARE ==
[2023-01-07 20:00] LABS: ALT 24 U/L (10-49); AST 25 U/L (14-35); Chol/HDL Ratio 3.39 Ratio; LDL Cholesterol,Calculated 72.7 mg/dL (0.0-131.0)
== END | disposition home or self-care (01) ==
LOC: LABWHC1 14:19
PROVIDERS: ATTEND Internal Medicine Interventional Cardiology
DX: E78.2 Mixed hyperlipidemia (principal)
CPT/HCPCS: 36415; 80061; 84450; 84460

== ENCOUNTER → 2023-07-20 | Outpatient (CLI) | payer MEDICARE ==
[2023-07-20 13:31] LABS: ALT 32 U/L (10-49); AST 27 U/L (14-35); Albumin 4.3 g/dL (3.8-4.9); Albumin/Globulin Ratio 1.43 Ratio (1.60-3.17); Alkaline Phosphatase 118 U/L (41-126); BUN/Creat Ratio 24.55 Ratio (12.00-20.00); Calcium 9.8 mg/dL (8.7-10.3); Carbon Dioxide 27.5 mmol/L (21.6-31.8); Chloride 103 mmol/L (96-109); Chol/HDL Ratio 2.91 Ratio; Glucose 113 mg/dL (70-110); LDL Cholesterol,Calculated 66.1 mg/dL (0.0-131.0); Potassium 4.5 mmol/L (3.5-5.5); Sodium 142 mmol/L (135-145); Total Bilirubin 0.5 mg/dL (0.3-1.2); Total Protein 7.3 g/dL (6.2-8.2); VLDL Calculation 16.02 mg/dL (5.00-40.00)
== END | disposition home or self-care (01) ==
LOC: LABWHC1 07:37
PROVIDERS: ATTEND Internal Medicine Interventional Cardiology
DX: I10 Essential (primary) hypertension (principal); E78.2 Mixed hyperlipidemia
CPT/HCPCS: 36415; 80053; 80061

== ENCOUNTER → 2024-02-15 | Outpatient (CLI) | payer MEDICARE ==
[2024-02-15 18:36] LABS: ALT 25 U/L (10-49); AST 22 U/L (14-35); Chol/HDL Ratio 3.09 Ratio; LDL Cholesterol,Calculated 70.4 mg/dL (0.0-131.0); VLDL Calculation 14.12 mg/dL (5.00-40.00)
== END | disposition home or self-care (01) ==
LOC: LABWHC1 07:38
PROVIDERS: ATTEND Internal Medicine Interventional Cardiology
DX: E78.2 Mixed hyperlipidemia (principal)
CPT/HCPCS: 36415; 80061; 84450; 84460

== ENCOUNTER → 2024-09-04 | Outpatient (CLI) | payer MEDICARE ==
[2024-09-04 21:01] LABS: ALT 23 U/L (10-49); AST 24 U/L (14-35); Albumin 4.2 g/dL (3.8-4.9); Albumin/Globulin Ratio 1.62 Ratio (1.60-3.17); Alkaline Phosphatase 102 U/L (41-126); Blood Urea Nitrogen 25.2 mg/dL (9.0-27.0); Carbon Dioxide 25.7 mmol/L (21.6-31.8); Chloride 108 mmol/L (96-109); Chol/HDL Ratio 3.22 Ratio; Globulin 2.6 g/dL (1.6-3.3); Glucose 118 mg/dL (70-110); LDL Cholesterol,Calculated 50.6 mg/dL (0.0-131.0); Sodium 145 mmol/L (135-145); Total Bilirubin 0.3 mg/dL (0.3-1.2); Total Protein 6.8 g/dL (6.2-8.2)
== END | disposition home or self-care (01) ==
LOC: LABWHC1 15:13
PROVIDERS: ATTEND Internal Medicine Interventional Cardiology
DX: E78.2 Mixed hyperlipidemia (principal)
CPT/HCPCS: 36415; 80053; 80061